=== PATIENT | male | born 1955 | race Caucasian/White ===

== ENCOUNTER → 2017-02-10 | Outpatient (CLI) | payer MEDICAID ==
[2012-12-18 14:08] VITALS: BP 187/103
--- NOTE | 2017-02-10 11:15 | RAD ---
HISTORY: Swelling, right foot pain Study: Three views right foot Comparison: None Findings: Normal alignment. No acute fracture or dislocation. The soft tissues are unremarkable. Mild calcanea l enthesopathy is noted. IMPRESSION: 1. No acute osseous abnormality. Reported By:
== END | disposition home or self-care (01) ==
LOC: RAD 10:39
PROVIDERS: ATTEND Internal Medicine
DX: M79.89 Other specified soft tissue disorders (principal)
CPT/HCPCS: 73630